=== PATIENT | female | born 1940 | race Two or more races ===

== ENCOUNTER 2018-04-16 11:27 | Inpatient (IN) | payer MEDICARE ==
[2018-04-16] VITALS (7 sets, daily range): BP systolic 99–164; BP diastolic 48–81
[~2018-04-16] VITALS: Ht 152.4 cm; Wt 86.2 kg
[~2018-04-16 11:27] MED LIST: ASPIR 8181 MG ORAL; ATORVASTATIN CA20 MG ORAL; HYZAAR 100-251 EACH ORAL; IBUPROFEN600 MG ORAL; JANUVIA100 MG ORAL; LEVAQUIN750 MG ORAL; PROMETHAZINE-C118 M1 ORAL; TRADJENTA5 MG PO; TRAVEL SICKNESS25 MG ORAL
[2018-04-16] MEDS ORDERED: Meclizine 25mg tab ORAL ONE (12:15)
--- NOTE | 2018-04-16 12:22 | Emergency Room Report ---
History of Present Illness General Chief Complaint: General Complaint Source: Patient Present Illness HPI Patient is a 77-year-old female who presented after increased dizziness. Patient gradual onset of symptoms. She reports having increased dizziness as well as chest discomfort. Patient not been having any fever. She was having multiple episodes of vomiting. She reports having some abdominal discomfort which began after multiple episodes of vomiting. She denies any hematemesis. Allergies: Coded Allergies: No Known Allergies (Unverified , 12/16/15) Patient History Past Medical History: see triage record Last Menstrual Period: na Reviewed Nursing Documentation: PMH: Agreed; PSxH: Agreed Nursing Documentation-PMH Past Medical History: No History, Except For Hx Hypertension: Yes Hx Diabetes: Yes Review of Systems All Other Systems: negative except mentioned in HPI Physical Exam Vital Signs Date Time Temp Pulse Resp B/P (MAP) Pulse Ox O2 Delivery O2 Flow Rate FiO2 04/16/18 11:28 97.9 81 18 164/48 98 Room Air 97.9 Sp02 EP Interpretation: reviewed, normal General Appearance: normal inspection, well appearing, no apparent distress, alert, GCS 15, non-toxic, obese Head: atraumatic ENT: normal ENT inspection, hearing grossly normal, normal voice Neck: normal inspection, full range of motion, supple, no bony tend Respiratory: normal inspection, lungs clear, normal breath sounds, no respiratory distress, no retraction, no wheezing Cardiovascular #1: regular rate, rhythm, no edema Gastrointestinal: normal inspection, normal bowel sounds, non tender, soft, no guarding, no hernia Genitourinary: no CVA tenderness Musculoskeletal: normal inspection, back normal, normal range of motion Neurologic: normal inspection, alert, oriented x3, responsive, cuff stitcher III-XII nml as tested, speech normal Psychiatric: normal inspection, judgement/insight normal, mood/affect normal Skin: normal inspection, normal color, no rash Medical Decision Making Diagnostic Impression: Primary Impression: Intractable vomiting Additional Impression: Diabetes ER Course patient presented for dizziness. Differential diagnosis included but not limited to urinary tract infection, anemia, arrhythmia, abdominal aortic aneurysm, CVA, subarachnoid hemorrhage, benign positional vertigo. Because of complexity of patient's case laboratory testing and imaging studies were ordered.CT the head read by radiology showed nonspecific white matter changes without evident intracranial hemorrhage or CVA. There is noted be some calcification in the basal ganglia. The patient was given Zofran as well as meclizine as well as Compazine without any improvement or vomiting. The patient started on IV fluids.The CT of abdomen pelvis is ordered and is currently pending. Dr. Vignesh Mariee was contacted for inpatient management due to covering physician. Labs Test 04/16/18 12:20 04/16/18 14:26 04/17/18 06:28 White Blood Count 9.5 K/UL (4.8-10.8) Red Blood Count 5.22 M/UL (4.20-5.40) Hemoglobin 14.6 G/DL (12.0-16.0) Hematocrit 45.5 % (37.0-47.0) Mean Corpuscular Volume 87 FL (80-99) Mean Corpuscular Hemoglobin 28.0 PG (27.0-31.0) Mean Corpuscular Hemoglobin Concent 32.1 G/DL (32.0-36.0) Red Cell Distribution Width 11.9 % (11.6-14.8) Platelet Count 186 K/UL (150-450) Mean Platelet Volume 8.4 FL (6.5-10.1) Neutrophils (%) (Auto) 64.7 % (45.0-75.0) Lymphocytes (%) (Auto) 26.4 % (20.0-45.0) Monocytes (%) (Auto) 5.3 % (1.0-10.0) Eosinophils (%) (Auto) 2.3 % (0.0-3.0) Basophils (%) (Auto) 1.3 % (0.0-2.0) Sodium Level 137 MMOL/L (136-145) Potassium Level 3.8 MMOL/L (3.5-5.1) Chloride Level 101 MMOL/L (98-107) Carbon Dioxide Level 27 MMOL/L (21-32) Anion Gap 9 mmol/L (5-15) Blood Urea Nitrogen 16 mg/dL (7-18) Creatinine 1.0 MG/DL (0.55-1.30) Estimat Glomerular Filtration Rate mL/min (>60) Glucose Level 235 MG/DL (74-106) Calcium Level 9.4 MG/DL (8.5-10.1) Total Bilirubin 0.3 MG/DL (0.2-1.0) Aspartate Amino Transf (AST/SGOT) 35 U/L (15-37) Alanine Aminotransferase (ALT/SGPT) 43 U/L (12-78) Alkaline Phosphatase 102 U/L (46-116) Total Creatine Kinase 62 U/L (26-308) Creatine Kinase MB 0.6 NG/ML (0.0-3.6) Creatine Kinase MB Relative Index 0.9 Troponin I 0.000 ng/mL (0.000-0.056) Pro-B-Type Natriuretic Peptide 94 pg/mL (0-125) Total Protein 8.2 G/DL (6.4-8.2) Albumin 3.5 G/DL (3.4-5.0) Globulin 4.7 g/dL Albumin/Globulin Ratio 0.7 (1.0-2.7) Urine Color Yellow Urine Appearance Slightly cloudy Urine pH 7 (4.5-8.0) Urine Specific Dahlgren 1.005 (1.005-1.035) Urine Protein 2+ (NEGATIVE) Urine Glucose (UA) Negative (NEGATIVE) Urine Ketones Negative (NEGATIVE) Urine Occult Blood 3+ (NEGATIVE) Urine Nitrite Negative (NEGATIVE) Urine Bilirubin Negative (NEGATIVE) Urine Urobilinogen 1 MG/DL (0.0-1.0) Urine Leukocyte Esterase 3+ (NEGATIVE) Urine RBC 2-4 /HPF (0 - 2) Urine WBC 5-10 /HPF (0 - 2) Urine Squamous Epithelial Cells Few /LPF (NONE/OCC) Urine Amorphous Sediment Moderate /LPF (NONE) Urine Bacteria Few /HPF (NONE) Last Vital Signs Date Time Temp Pulse Resp B/P (MAP) Pulse Ox O2 Delivery O2 Flow Rate FiO2 04/16/18 11:41 97.9 81 18 164/48 98 Room Air 97.9 Status: unchanged Disposition: ADMITTED INPATIENT Condition: Serious Referrals: NOT CHOSEN IPA/,REFERRING (PCP) Reji Durbin MD Apr 16, 2018 12:22
[2018-04-16 12:35] LABS: BASOPHILS % (AUTO) 1.3 % (0.0-2.0); EOSINOPHILS % (AUTO) 2.3 % (0.0-3.0); HEMATOCRIT 45.5 % (37.0-47.0); HEMOGLOBIN 14.6 G/DL (12.0-16.0); LYMPHOCYTES % (AUTO) 26.4 % (20.0-45.0); MEAN CORPUSCULAR VOLUME 87 FL (80-99); MONOCYTES % (AUTO) 5.3 % (1.0-10.0); NEUTROPHILS % (AUTO) 64.7 % (45.0-75.0); PLATELET COUNT 186 K/UL (150-450); RED BLOOD COUNT 5.22 M/UL (4.20-5.40); RED CELL DISTRIBUTION WIDTH 11.9 % (11.6-14.8); WHITE BLOOD COUNT 9.5 K/UL (4.8-10.8)
[2018-04-16 12:46] LABS: ANION GAP 9 mmol/L (5-15); BLOOD UREA NITROGEN 16 mg/dL (7-18); CALCIUM 9.4 MG/DL (8.5-10.1); CARBON DIOXIDE 27 MMOL/L (21-32); CHLORIDE 101 MMOL/L (98-107); POTASSIUM 3.8 MMOL/L (3.5-5.1); SODIUM 137 MMOL/L (136-145)
[2018-04-16 13:00] LABS: ALANINE AMINOTRANSFERASE 43 U/L (12-78); ALBUMIN 3.5 G/DL (3.4-5.0); ALBUMIN/GLOBULIN RATIO 0.7 (1.0-2.7); ALKALINE PHOSPHATASE 102 U/L (46-116); ASPARTATE AMINO TRANSFERASE 35 U/L (15-37); BILIRUBIN,TOTAL 0.3 MG/DL (0.2-1.0); CKMB 0.6 NG/ML (0.0-3.6); CREATINE KINASE 62 U/L (26-308)
--- NOTE | 2018-04-16 13:04 | Diagnostic Imaging Report ---
Indications: 77-year-old female with altered mental status and increased dizziness Technique: Spiral acquisitions obtained through the brain. Angled axial and coronal 5 x 5 mm slices were reconstructed. Total dose length product 1432.22 mGycm. CTDI vol(s) 70.38 mGy. Dose reduction achieved using automated exposure control Comparison: None. Findings: No acute intracranial hemorrhage or edema. No mass effect nor midline shift. There is age-related enlargement of the ventricles and extra axial CSF spaces. There is periventricular deep white matter low-attenuation, consistent with chronic ischemic change. A small calcification is seen in the left caudate head. The calvarium is intact. The mastoids are clear. The sinuses are clear. The visualized orbits are unremarkable. Impression: Chronic and age-related changes Negative for acute intracranial bleed or mass effect The CT scanner at [facility] is accredited by the [employer] and the scans are performed using protocols designed to limit radiation exposure to as low as reasonably achievable to attain images of sufficient resolution adequate for diagnostic evaluation.
--- NOTE | 2018-04-16 13:05 | Diagnostic Imaging Report ---
Indication: Reason For Exam: SOB Technique: One view of the chest Comparison: 12/16/2015 Findings: Body habitus somewhat limits evaluation. There is atelectasis at the right lung base and elevation of the right hemidiaphragm. The lungs and pleural spaces are otherwise clear. The heart is borderline enlarged. No significant change Impression: No acute process
[2018-04-16] MEDS ORDERED: Isovue-300 100ml vial INJ PRN ×2 (13:15→13:30)
[2018-04-16] MEDS ORDERED: Sodium Chloride 500ML 500 ML IV ONE (13:45)
--- NOTE | 2018-04-16 14:56 | Diagnostic Imaging Report ---
Clinical Indication: Abdominal pain, nausea, vomiting Technique: No oral contrast utilized, per emergency room physician request IV administration nonionic contrast. Venous phase spiral acquisition obtained through the abdomen and pelvis. Multiplanar reconstructions were generated. Total dose length product 1061.13 mGycm. CTDIvol(s) 19.51 mGy. Dose reduction achieved using automated exposure control Comparison: none Findings: Lack of enteric contrast limits assessment of the GI tract. The appendix is normal. There is colonic diverticulosis. No evidence of diverticulitis. No small bowel distention. No free or likely related intraperitoneal gas or fluid. There is a small fat-containing umbilical hernia. The distal esophagus, stomach, duodenum are all unremarkable. The liver demonstrates a few scattered subcentimeter low-attenuation lesions which are too small to characterize. There is equivocally some surface micronodular nodularity in the anterior left lobe. The gallbladder is surgically absent. No biliary ductal dilatation is evident. The pancreas is unremarkable. The spleen demonstrates a few subcentimeter low-attenuation lesions. It is otherwise unremarkable. The adrenals and kidneys are unremarkable. No retroperitoneal or mesenteric mass or adenopathy. No pelvic mass or adenopathy. Uterus and adnexal structures are unremarkable. The included lung bases demonstrate some atelectatic changes, are otherwise unremarkable. The bones demonstrate mild degenerative changes of the lumbosacral junction. Impression: No acute abnormality Equivocal minimal atelectatic left lobe surface nodularity, if real could indicate early cirrhotic change Subcentimeter low-attenuation liver lesions, too small to characterize, most likely benign simple cysts or bile hamartomas. A few scattered subcentimeter low-attenuation lesions are seen within the spleen is well Prior cholecystectomy Colonic diverticulosis. No evidence of diverticulitis Incidental findings as noted, including minimal degenerative spondylosis, minimal basilar pulmonary atelectatic changes, small fat-containing umbilical hernia The CT scanner at [facility] is accredited by the [employer] and the scans are performed using protocols designed to limit radiation exposure to as low as reasonably achievable to attain images of sufficient resolution adequate for diagnostic evaluation.
[2018-04-16 14:58] LABS: APPEARANCE,URINE SLIGHTLY CLOUDY; BILIRUBIN, URINE NEGATIVE (NEGATIVE); GLUCOSE, URINE (UA) NEGATIVE (NEGATIVE); KETONES,URINE NEGATIVE (NEGATIVE); LEUKOCYTE ESTERASE ,URINE 3+ (NEGATIVE); NITRITE,URINE NEGATIVE (NEGATIVE); PH,URINE 7 (4.5-8.0); PROTEIN,URINE 2+ (NEGATIVE); UROBILINOGEN,URINE 1 MG/DL (0.0-1.0)
[2018-04-16 15:08] LABS: COLOR,URINE YELLOW
[2018-04-16] MEDS: NS w/KCl 20mEq 1,000 ML IV SCH (20:32)
[2018-04-16] MEDS: NovoLOG Insulin Flexpen SUBQ SCH (20:33)
--- NOTE | 2018-04-16 22:15 | History and Physical Report ---
DATE OF ADMISSION: 04/16/2018 NOTE: INCOMPLETE DICTATION REASON FOR ADMISSION: Dizziness with vomiting. HISTORY OF PRESENT ILLNESS: This is a 77-year-old female who lives at home with her family members. The patient notes several days of progression of these symptoms, now today with nausea and vomiting became more severe and she notes dizziness with turning her head or lying flat on a pill with her head back. She has not had any fevers or chills. She has not had any diarrhea and has not had any change in her diet. She noted some discomfort in her chest associated with multiple vomiting episodes. Vomitus is bilious without any signs of blood or dark material. There is no prior history of cerebrovascular disease. PAST MEDICAL HISTORY: Type 2 diabetes mellitus, hypertension, osteoarthritis, degenerative disk disease, diverticular disease and prior hysterectomy. MEDICATIONS: Prior to admission, reviewed and reconciled. ALLERGIES: None. FAMILY HISTORY: Noncontributory. SOCIAL HISTORY: Negative for smoking, alcohol, or substance abuse. Vignesh Mariee M.D. DR: KYLER JOB#: [id number] CC:
--- NOTE | 2018-04-16 22:30 | History and Physical Report ---
DATE OF ADMISSION: 04/16/2018 REASON FOR ADMISSION: Dizziness and vomiting. HISTORY OF PRESENT ILLNESS: This is a 77-year-old female. She presented to the emergency room because of dizziness and progressive vomiting. She notes a progression over the past several days, worsening today. She notes dizziness when turning her head or lying flat or having her head on a pillow. She notes the vomiting and nausea started several days ago and progressed today to be unremitting and associated with chest discomfort due to this frequency and severity of these episodes. The emesis is described as bilious with no signs of blood or dark material. The patient does not have any known history of prior strokes or hepatobiliary disease. She has had a prior cholecystectomy. PAST MEDICAL HISTORY: Type 2 diabetes mellitus, hypertension, osteoarthritis, degenerative disk disease, status post cholecystectomy, and diverticular disease. MEDICATIONS: Prior to admission, reviewed and reconciled. ALLERGIES: None. SOCIAL HISTORY: Negative for smoking, alcohol, or substance abuse. REVIEW OF SYSTEMS: No fevers. No chills. No cough or sputum production. No diarrhea. No history of thyroid disorder. Recent cholesterol parameters not known. No history of prior seizures or strokes. No history of heart attack or exertion of chest pain. PHYSICAL EXAMINATION: VITAL SIGNS: Afebrile. Blood pressure 164/48, pulse 81, and respirations 18. HEENT: Normocephalic and atraumatic. Conjunctivae pink. Sclerae are anicteric. Oropharynx clear. Mucous membranes moist. NECK: Supple. No bruits. Jugular venous pressure normal. LUNGS: Clear. CARDIAC: Regular rhythm and rate. Normal S1, S2 with a fourth heart sound. ABDOMEN: Soft. No focal guarding, tenderness, or rebound. EXTREMITIES: Good pulses. No clubbing, cyanosis, or edema. NEUROLOGIC: Strength is symmetric. Gait is somewhat wide-based . There is no asterixis. There is no nystagmus. Pupils are equal, round, reactive to light and accommodation. Extraocular movements intact. The patient does have difficulty turning her head or bending forward due to symptoms described above. DIAGNOSTIC DATA: Chest x-ray, no acute process. CAT scan of the brain with diffuse white matter disease. No acute process. Abdominal CT scan notable for cholecystectomy, diverticular disease, some liver and splenic lesions, which appear benign and a low attenuation, atelectasis, umbilical hernia, and spondylosis. LABORATORY DATA: Chemistry within normal limits other than glucose level elevated at 235. White count 9.5 and hemoglobin 14.6. EKG, sinus rhythm with nonspecific ST-T wave changes. IMPRESSION: This is a 77-year-old female, who presents with dizziness and vomiting with findings suggestive of benign positional vertigo. Other concerns include her mildly elevated blood pressure and elevated glucose level. RECOMMENDATIONS: 1. Recommend admit to the hospital. 2. Cardiac monitoring. 3. Orthostatics. 4. Hydration. 5. Neurologic consultation. 6. Antiemetics. 7. Consider Valium for further nausea, vomiting, and vertiginous symptoms. 8. DVT prophylaxis should there be prolonged immobilization. 9. Further recommendations will follow based on clinical course. Vignesh Mariee M.D. DR: MARIA ELENA JOB#: [id number] CC:
[2018-04-17 04:00] VITALS: BP 91/52
[2018-04-17] MEDS: NovoLOG Insulin Flexpen SUBQ SCH ×4 (06:11→21:14)
[2018-04-17 08:00] VITALS: BP 145/59
[2018-04-17] MEDS: NS w/KCl 20mEq 1,000 ML IV SCH ×2 (09:20→11:37)
[2018-04-17 12:00] VITALS: BP 156/76
--- NOTE | 2018-04-17 14:03 | Cardiology Report ---
APPROVED REPORT EKG Measurement Heart [id number] AR [id number] Normal sinus rhythm Left axis deviation Abnormal ECG
[2018-04-17 16:00] VITALS: BP 142/85
--- NOTE | 2018-04-17 18:23 | Consultation ---
Consult Note Consult Note NEUROLOGY CONSULTATION: Full note dictated #[id number] 77 y/o, RH, HF with PH of HTN, DM, OA, DJD, diverticular disease, and hysterectomy. About 6 months ago she had a brief episode of vertigo. Then ~ 1 week ago she noted brief episodes of positional vertigo. Then on the day of admission she got severely vertiginous and had N/V with the vertigo and thus [place] [facility] [place] was [place]. ON EXAM: Cognitive dysfunction. Globally diminished DTRs. Vertigo and nystagmus lasting 15 seconds when she was made to sit up which fatigued. IMPRESSION: Labyrinthine vertigo most probably BPV. REC: Valium 2 mg q HS for a few nights. When more comfortable teach her to do Aden-Daroff exercises. Observe. Lanie Larios M.D., M.S.P.LANIE RANDALL Apr 17, 2018 18:23
[2018-04-17 20:00] VITALS: BP 142/61
--- NOTE | 2018-04-17 23:45 | Consultation ---
DATE OF CONSULTATION: 04/17/2018 NEUROLOGY CONSULTATION CONSULTING PHYSICIAN: Gagandeep Larios M.D. REQUESTING PHYSICIAN: Vignesh Mariee M.D. HISTORY: Ms. Dayna Trevizo is a 77-year-old, right-handed, lady, who does have a past history of hypertension, diabetes mellitus, osteoarthritis, degenerative joint disease, diverticular disease, and a hysterectomy. She was functioning relatively well until approximately six months ago when she had a brief episode of positional vertigo. She would get brief episodes of a vertiginous feeling when she would change her position usually from lying down to sitting up. This then spontaneously resolved. Then approximately one week ago, she again started to have brief episodes of positional vertigo. On the day of admission, this got significantly worse. She was severely vertiginous and had nausea and vomiting with the vertigo. As a result of that, she was brought into the [facility] emergency room and was admitted. Today, she feels much better. She still gets a vertiginous feeling when she sits or stands from a lying down position, however, when she came turns her head from side to side, she is not vertiginous. She denies any weakness on one side or the other, numbness on one side or the other, problems with speech, problems with language, problems with vision, or other neurological symptoms. PAST MEDICAL HISTORY: Significant for hypertension, diabetes mellitus, osteoarthritis, degenerative joint disease, diverticular disease, and hysterectomy. FAMILY HISTORY: Significant for high blood pressure and diabetes mellitus in other family members. PERSONAL HISTORY: Home: She lives with a nephew. 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 Habits: She denies the use of alcohol, tobacco, or illicit drugs. MEDICATIONS: Present medications include insulin and Zofran. PHYSICAL EXAMINATION: GENERAL: She is a well-developed, well-nourished, pleasant lady, lying in bed, in no acute distress. VITAL SIGNS: Pulse 90/minute, blood pressure 142/85 mmHg, respirations 19/minute, and temperature 97.4 degrees Fahrenheit. HEAD: Normocephalic and atraumatic. EENT: Examination benign. NECK: No neck rigidity was observed. NEUROLOGICAL EXAMINATION: MENTAL STATUS EXAMINATION: She was awake and alert. She was oriented to self, [facility] and March. She did not know the date or the year. She was able to recall 3/3 words immediately, and could remember them in 1 minute and 3 minutes. She was unable to remember any [place] Presidents. Her mathematical skills were minimally impaired. Her visuospatial function was also minimally impaired. SPEECH: She had no dysarthria. LANGUAGE: She had no aphasia. CRANIAL NERVE EXAMINATION: II: The visual lincoln were intact on confrontation testing. III, IV & : The external ocular movements were full and the pupils 3 mm in diameter, equal, round, regular, and reactive to light. She had normal facial sensations and the temporales, masseters, and pterygoids functioned normally. VII: She had normal facial expressions and no facial asymmetry. VIII: She was able to hear well bilaterally and had no nystagmus at rest. IX: The palate moved symmetrically on phonation. X: She had no hoarseness of voice. XI: The sternocleidomastoids and trapezii functioned normally. XII: The tongue was in the midline without any fasciculations or atrophy. MOTOR SYSTEM: The tone was normal in all four extremities. Examination of muscle mass revealed no focal wasting. Examination of power revealed G 5/5 power in all muscle groups tested. SENSORY EXAMINATION: She had intact sensations to pinprick, light touch, and graphesthesia. COORDINATION: She performed well on [id number] and [id number] testing. Romberg test could not be performed because even when her eyes were opened and she was made to stand with feet together, she was quite unsteady. REFLEXES: 0 at the biceps, triceps, brachioradialis, knees, and ankles. The plantar responses were flexor bilaterally. STANCE: She had a wide-based stance. GAIT: She had a wide-based, but stable gait. POSITIONAL CHANGES: When she was made to turn her head in bed the left and to the right, no nystagmus or vertigo was noted, however, as soon as she was made to sit up from a lying down position, she started to have nystagmus with brief latency associated with vertigo. The entire episode lasted approximately 15 seconds. When an attempt was made to reproduce the events, they could not be reproduced. DIAGNOSTIC IMPRESSION: 1. Ms. Dayna Trevizo is a 77-year-old, right-handed, lady, with a past history of hypertension, diabetes mellitus, osteoarthritis, degenerative joint disease, diverticular disease, and hysterectomy who approximately six months ago had a brief episode of vertigo and then 1 week ago started to have multiple brief episodes of positional vertigo. On the day of admission, she got severely vertiginous and had nausea and vomiting. Today, she feels better. 2. On neurological examination, at this time, she does have problems with orientation, memory, visuospatial function and high cognitive function. She also has vertigo associated with nystagmus lasting approximately 15 seconds when she was made to sit up from a lying down position. This however cannot be reproduced. 3. The CT scan of the brain without contrast reveals atrophy and some deep white matter changes, but no acute pathology. 4. Laboratory data revealed a relatively normal CBC. A chemistry panel with blood glucose elevated to 235, but otherwise normal panel. Normal vitamin B12, and folate. Elevated TSH at 7.24. An urinalysis that reveals 3+ leukocyte esterase, 2-4 RBCs and 5-10 WBCs per high-power field. 5. The patient's history, neurological examination, laboratory data, and imaging studies are most compatible with labyrinthine vertigo. There is a high probability that this is benign position vertigo, which may have been triggered by her urinary tract infection or other reasons. RECOMMENDATIONS: 1. The patient was given an explanation of the above-mentioned findings. 2. She will be started on Valium 2 mg at bedtime for the next few nights to help her with vertiginous symptoms. 3. When she is more comfortable, she should be taught how to perform Aden-Daroff exercises, which will help her with her vertigo in the long run. 4. If appropriate, her urinary tract infection should be treated. Thank you for entrusting me with the care of Ms. Trevizo. I shall follow her with you. Gagandeep Larios M.D., M.S.P.H. DR: HANSA JOB#: [id number] [facility]
[2018-04-18] VITALS: BP 125/50
--- NOTE | 2018-04-18 02:30 | Progress Note ---
DATE: 04/17/2018 INTERNAL MEDICINE PROGRESS NOTE SUBJECTIVE: The patient notes no nausea or vomiting today. She is tolerating diet. She still has dizziness especially with turning of her head. OBJECTIVE: VITAL SIGNS: Afebrile. Blood pressure 142/85, pulse 98, respiratory rate 19. LUNGS: Clear. CARDIAC: Regular. Normal S1, S2. ABDOMEN: Soft, nontender. No guarding or rebound. EXTREMITIES: No edema. NEUROLOGIC: Vertigo and nystagmus were noted today. IMPRESSION: 1. BPPV. 2. Cerebrovascular disease. 3. Vomiting, resolved. PLAN: 1. 2. Physical and occupational therapy. 3. Fall precautions. 4. Cautious hydration. Vignesh Mariee M.D. DR: Leonardo JOB#: [id number] CC:
[2018-04-18 04:00] VITALS: BP 139/51
[2018-04-18] MEDS: NovoLOG Insulin Flexpen SUBQ SCH ×4 (06:26→20:58)
[2018-04-18 08:00] VITALS: BP 158/65
[2018-04-18] MEDS: NS w/KCl 20mEq 1,000 ML IV SCH (11:30)
[2018-04-18 12:00] VITALS: BP 143/58
[2018-04-18 16:00] VITALS: BP 129/53
--- NOTE | 2018-04-18 19:56 | Neurology Progress Note ---
Interim History Interim History Interim History Ms. Trevizo feels better today. She has been less vertiginous. She was able to sit up in a chair and have her meals. She was also able to walk well. She denies any new neurologic symptoms. Review of Systems Neuro Review of Systems Benign. Objective Physical Exam Last Vital Signs Date Time Temp Pulse Resp B/P (MAP) Pulse Ox O2 Delivery O2 Flow Rate FiO2 04/18/18 16:00 66 04/18/18 16:00 98.5 18 129/53 (78) 96 98.5 04/18/18 09:00 Room Air Neurologic Exam Objective PHYSICAL EXAMINATION: GENERAL: She is a well-developed, well-nourished, pleasant lady, lying in bed, in no acute distress. HEAD: Normocephalic and atraumatic. EENT: Examination benign. NECK: No neck rigidity was observed. NEUROLOGICAL EXAMINATION: MENTAL STATUS EXAMINATION: She was awake and alert. She was oriented to [facility], [facility], April 18, 2018. She was able to recall 3/3 words immediately, and could remember them in 1 minute and 3 minutes. She was unable to remember any [place] Presidents. Her mathematical skills were minimally impaired. Her visuospatial function was also minimally impaired. SPEECH: She had no dysarthria. LANGUAGE: She had no aphasia. CRANIAL NERVE EXAMINATION: II: The visual licnoln were intact on confrontation testing. III, IV & : The external ocular movements were full and the pupils 3 mm in diameter, equal, round, regular, and reactive to light. V: She had normal facial sensations and the temporales, masseters, and pterygoids functioned normally. VII: She had normal facial expressions and no facial asymmetry. VIII: She was able to hear well bilaterally and had no nystagmus at rest. IX: The palate moved symmetrically on phonation. X: She had no hoarseness of voice. XI: The sternocleidomastoids and trapezii functioned normally. XII: The tongue was in the midline without any fasciculations or atrophy. MOTOR SYSTEM: The tone was normal in all four extremities. Examination of muscle mass revealed no focal wasting. Examination of power revealed G 5/5 power in all muscle groups tested. SENSORY EXAMINATION: She had intact sensations to pinprick, light touch, and graphesthesia. COORDINATION: She performed well on [id number] and [id number] testing. Romberg test could not be performed because even when her eyes were opened and she was made to stand with feet together, she was quite unsteady. REFLEXES: 0 at the biceps, triceps, brachioradialis, knees, and ankles. The plantar responses were flexor bilaterally. STANCE: She had a wide-based stance. GAIT: She had a wide-based, but stable gait. POSITIONAL CHANGES: When she was made to turn her head in bed the left and to the right, and even when she was made to sit up at the edge of her bed no nystagmus or vertigo was noted. Impression/Recommendations Diagnostic Impression 1. Ms. Dayna Trevizo is a 77-year-old, right-handed, lady, with a past history of hypertension, diabetes mellitus, osteoarthritis, degenerative joint disease, diverticular disease, and hysterectomy who approximately six months ago had a brief episode of vertigo and then 1 week ago started to have multiple brief episodes of positional vertigo. On the day of admission, she got severely vertiginous and had nausea and vomiting. 2. She feels better today. She has been less vertiginous. She was able to sit up in a chair and have her meals. She was also able to walk well. She denies any new neurologic symptoms. 3. On neurological examination, at this time, she does have problems with orientation, memory, visuospatial function and high cognitive function. She also did not demonstrate vertigo or nystagmus today. 4. The CT scan of the brain without contrast reveals atrophy and some deep white matter changes, but no acute pathology. 5. Laboratory data revealed a relatively normal CBC. A chemistry panel with blood glucose elevated to 235, but otherwise normal panel. Normal vitamin B12, and folate. Elevated TSH at 7.24. An urinalysis that reveals 3+ leukocyte esterase, 2-4 RBCs and 5-10 WBCs per high-power field. 6. The patient's history, neurological examination, laboratory data, and imaging studies are most compatible with labyrinthine vertigo. There is a high probability that this is benign position vertigo, which may have been triggered by her urinary tract infection or other reasons. Recommendations 1. Continue Valium 2 mg at bedtime for the next few nights to help her with vertiginous symptoms. 2. When she is more comfortable, she should be taught how to perform Aden- Daroff exercises, which will help her with her vertigo in the long run. 3. If appropriate, her urinary tract infection should be treated. 4. Increase activity as tolerated. Lanie Talbert M.D., M.S.P.Rafy. LANIE TALBERT Apr 18, 2018 19:55
[2018-04-18 20:00] VITALS: BP 144/76
[2018-04-19] VITALS: BP 114/53
--- NOTE | 2018-04-19 00:15 | Progress Note ---
DATE: 04/18/2018 INTERNAL MEDICINE PROGRESS NOTE SUBJECTIVE: The patient is able to ambulate, feels better. Appetite still poor. She still has some nausea after meals as well as dyspepsia. No new neurologic complaints. OBJECTIVE: VITAL SIGNS: Blood pressure 129/53, pulse 66, respirations 18, and afebrile. NECK: Supple. Jugular venous pressure normal. LUNGS: Clear. CARDIAC: Regular rhythm and rate. Normal S1 and S2 with a fourth heart sound. ABDOMEN: Soft and nontender. EXTREMITIES: No edema. No nystagmus noted. Strength is symmetric. Gait is still slightly wide base. IMPRESSION: Overall improved. PLAN: 1. Continue symptomatic management of BPPV. 2. Discontinue IV fluids. 3. Continue p.r.n. antiemetics and antacids. 4. Physical and occupational therapy. 5. Fall precautions. 6. Discharge planning. Vignesh Mariee M.D. DR: KYLER JOB#: [id number] CC:
[2018-04-19 04:00] VITALS: BP 150/64
[2018-04-19 05:31] LABS: BASOPHILS % (AUTO) 0.9 % (0.0-2.0); EOSINOPHILS % (AUTO) 2.4 % (0.0-3.0); HEMATOCRIT 42.5 % (37.0-47.0); HEMOGLOBIN 13.8 G/DL (12.0-16.0); LYMPHOCYTES % (AUTO) 26.9 % (20.0-45.0); MEAN CORPUSCULAR VOLUME 87 FL (80-99); MONOCYTES % (AUTO) 4.8 % (1.0-10.0); NEUTROPHILS % (AUTO) 64.9 % (45.0-75.0); PLATELET COUNT 177 K/UL (150-450); RED BLOOD COUNT 4.89 M/UL (4.20-5.40); RED CELL DISTRIBUTION WIDTH 11.8 % (11.6-14.8); WHITE BLOOD COUNT 8.4 K/UL (4.8-10.8)
[2018-04-19] MEDS: NovoLOG Insulin Flexpen SUBQ SCH ×2 (05:53→11:25)
[2018-04-19 06:05] LABS: ALANINE AMINOTRANSFERASE 34 U/L (12-78); ALBUMIN 3.2 G/DL (3.4-5.0); ALBUMIN/GLOBULIN RATIO 0.8 (1.0-2.7); ALKALINE PHOSPHATASE 82 U/L (46-116); ANION GAP 8 mmol/L (5-15); ASPARTATE AMINO TRANSFERASE 27 U/L (15-37); BILIRUBIN,TOTAL 0.6 MG/DL (0.2-1.0); BLOOD UREA NITROGEN 14 mg/dL (7-18); CALCIUM 9.1 MG/DL (8.5-10.1); CARBON DIOXIDE 28 MMOL/L (21-32); CHLORIDE 104 MMOL/L (98-107); CREATININE 0.8 MG/DL (0.55-1.30); POTASSIUM 4.2 MMOL/L (3.5-5.1); SODIUM 140 MMOL/L (136-145)
[2018-04-19 08:00] VITALS: BP 145/65
--- NOTE | 2018-04-19 11:20 | Neurology Progress Note ---
Interim History Interim History Interim History Ms. Trevizo feels better today. She has been less vertiginous. She has been able to sit up comfortably. She was also able to walk well. She denies any new neurologic symptoms. She is eager to go home. Review of Systems Neuro Review of Systems Benign. Objective Physical Exam Last Vital Signs Date Time Temp Pulse Resp B/P (MAP) Pulse Ox O2 Delivery O2 Flow Rate FiO2 04/19/18 09:00 Room Air 04/19/18 08:00 62 04/19/18 08:00 98.2 19 145/65 (91) 95 98.2 Laboratory Tests Test 04/19/18 05:10 White Blood Count 8.4 K/UL (4.8-10.8) Red Blood Count 4.89 M/UL (4.20-5.40) Hemoglobin 13.8 G/DL (12.0-16.0) Hematocrit 42.5 % (37.0-47.0) Mean Corpuscular Volume 87 FL (80-99) Mean Corpuscular Hemoglobin 28.2 PG (27.0-31.0) Mean Corpuscular Hemoglobin Concent 32.4 G/DL (32.0-36.0) Red Cell Distribution Width 11.8 % (11.6-14.8) Platelet Count 177 K/UL (150-450) Mean Platelet Volume 7.8 FL (6.5-10.1) Neutrophils (%) (Auto) 64.9 % (45.0-75.0) Lymphocytes (%) (Auto) 26.9 % (20.0-45.0) Monocytes (%) (Auto) 4.8 % (1.0-10.0) Eosinophils (%) (Auto) 2.4 % (0.0-3.0) Basophils (%) (Auto) 0.9 % (0.0-2.0) Sodium Level 140 MMOL/L (136-145) Potassium Level 4.2 MMOL/L (3.5-5.1) Chloride Level 104 MMOL/L (98-107) Carbon Dioxide Level 28 MMOL/L (21-32) Anion Gap 8 mmol/L (5-15) Blood Urea Nitrogen 14 mg/dL (7-18) Creatinine 0.8 MG/DL (0.55-1.30) Estimat Glomerular Filtration Rate mL/min (>60) Glucose Level 191 MG/DL (74-106) H Calcium Level 9.1 MG/DL (8.5-10.1) Magnesium Level 1.7 MG/DL (1.8-2.4) L Total Bilirubin 0.6 MG/DL (0.2-1.0) Aspartate Amino Transf (AST/SGOT) 27 U/L (15-37) Alanine Aminotransferase (ALT/SGPT) 34 U/L (12-78) Alkaline Phosphatase 82 U/L (46-116) Pro-B-Type Natriuretic Peptide 179 pg/mL (0-125) H Total Protein 7.4 G/DL (6.4-8.2) Albumin 3.2 G/DL (3.4-5.0) L Globulin 4.2 g/dL Albumin/Globulin Ratio 0.8 (1.0-2.7) L Neurologic Exam Objective PHYSICAL EXAMINATION: GENERAL: She is a well-developed, well-nourished, pleasant lady, lying in bed, in no acute distress. HEAD: Normocephalic and atraumatic. EENT: Examination benign. NECK: No neck rigidity was observed. NEUROLOGICAL EXAMINATION: MENTAL STATUS EXAMINATION: She was awake and alert. She was oriented to [facility], [facility], and April 2018. She did not know the date. She was able to recall 3/3 words immediately, and could remember them in 1 minute and 3 minutes. She was unable to remember any [place] Presidents. Her mathematical skills were minimally impaired. Her visuospatial function was also minimally impaired. SPEECH: She had no dysarthria. LANGUAGE: She had no aphasia. CRANIAL NERVE EXAMINATION: II: The visual lincoln were intact on confrontation testing. III, IV & : The external ocular movements were full and the pupils 3 mm in diameter, equal, round, regular, and reactive to light. V: She had normal facial sensations and the temporales, masseters, and pterygoids functioned normally. VII: She had normal facial expressions and no facial asymmetry. VIII: She was able to hear well bilaterally and had no nystagmus at rest. IX: The palate moved symmetrically on phonation. X: She had no hoarseness of voice. XI: The sternocleidomastoids and trapezii functioned normally. XII: The tongue was in the midline without any fasciculations or atrophy. MOTOR SYSTEM: The tone was normal in all four extremities. Examination of muscle mass revealed no focal wasting. Examination of power revealed G 5/5 power in all muscle groups tested. SENSORY EXAMINATION: She had intact sensations to pinprick, light touch, and graphesthesia. COORDINATION: She performed well on [id number]-[id number] and gehx-gn-pofj testing. Romberg test could not be performed because even when her eyes were opened and she was made to stand with feet together, she was quite unsteady. REFLEXES: 0 at the biceps, triceps, brachioradialis, knees, and ankles. The plantar responses were flexor bilaterally. STANCE: She had a wide-based stance. GAIT: She had a wide-based, but stable gait. POSITIONAL CHANGES: When she was made to turn her head to the left and to the right, and even when she was made to sit up at the edge of her bed no nystagmus or vertigo was noted. Impression/Recommendations Diagnostic Impression 1. Ms. Dayna Trevizo is a 77-year-old, right-handed, lady, with a past history of hypertension, diabetes mellitus, osteoarthritis, degenerative joint disease, diverticular disease, and hysterectomy who approximately six months ago had a brief episode of vertigo and then 1 week ago started to have multiple brief episodes of positional vertigo. On the day of admission, she got severely vertiginous and had nausea and vomiting. 2. She feels better today. She has been less vertiginous. She has been able to sit up comfortably. She was also able to walk well. She denies any new neurologic symptoms. She is eager to go home. 3. On neurological examination, at this time, she does have problems with orientation, memory, visuospatial function and higher cognitive function. She however did not demonstrate vertigo or nystagmus today. 4. The CT scan of the brain without contrast reveals atrophy and some deep white matter changes, but no acute pathology. 5. Laboratory data revealed a relatively normal CBC. A chemistry panel with blood glucose elevated to 235, but otherwise normal panel. Normal vitamin B12, and folate. Elevated TSH at 7.24. An urinalysis that reveals 3+ leukocyte esterase, 2-4 RBCs and 5-10 WBCs per high-power field. 6. The patient's history, neurological examination, laboratory data, and imaging studies are most compatible with labyrinthine vertigo. There is a high probability that this is benign position vertigo, which may have been triggered by her urinary tract infection or other reasons. Recommendations 1. Continue Valium 2 mg at bedtime for the next few nights to help her with vertiginous symptoms. 2. When she is more comfortable, she should be taught how to perform Aden- Daroff exercises, which will help her with her vertigo in the long run. 3. If appropriate, her urinary tract infection should be treated. 4. Increase activity as tolerated. Lanie Talbert M.D., M.S.P.H. LANIE TALBERT Apr 19, 2018 11:20
[2018-04-19 12:00] VITALS: BP 145/70
[2018-04-19] MEDS ORDERED: PROTONIX40 MG ORAL (13:56)
[2018-04-19 15:50] VITALS: BP 153/72
--- NOTE | 2018-04-19 23:15 | Progress Note ---
DATE: 04/19/2018 INTERNAL MEDICINE PROGRESS NOTE SUBJECTIVE: The patient's dizziness has improved. She is ambulatory without assist. She is tolerating a diet with no nausea or vomiting. The patient is also complaining of persistent dyspepsia. OBJECTIVE: VITAL SIGNS: Blood pressure 145/ , pulse 65, respirations 21, and afebrile. LUNGS: Clear. CARDIAC: Regular. ABDOMEN: Soft. EXTREMITIES: No edema. NEUROLOGIC: Nonfocal. Gait is slightly wide based. IMPRESSION: 1. Benign paroxysmal positional vertigo with vertigo, now improved. 2. Cerebrovascular disease with no acute insult. 3. Type 2 diabetes mellitus. 4. Hypertensive heart disease. 5. Osteoarthritis. 6. Degenerative disk disease. 7. Esophageal reflux. PLAN: 1. Resume prior antihypertensives and glycemics. 2. Aspirin prophylaxis. 3. Empiric proton pump inhibitor. 4. Discharge with outpatient followup. 5. P.r.n. meclizine discussed. Vignesh Mariee M.D. DR: KYELR JOB#: [id number] CC:
--- NOTE | 2018-04-20 12:00 | Discharge Summary ---
Discharge Summary Discharge Summary _ DATE OF ADMISSION: 04/16/2018 DATE OF DISCHARGE: 04/19/2018 CONSULTANTS: Dr. Gagandeep Larios BRIEF HOSPITAL COURSE: Patient is a 77-year-old female, who presented to emergency room because of dizziness and progressive vomiting. Symptoms had been ongoing for the past several days and had worsened. She had dizziness when turning her head or when laying flat or with a pillow. Vomiting and nausea started several days but progressed and was unremitting and was associated with chest discomfort. Emesis was described to be billous with no signs of blood or dark material. Due to the frequency and severity of these episodes, patient presented to ED. She has medical history significant for type 2 diabetes mellitus, hypertension, osteoarthritis, degenerative disc disease, status post cholecystectomy and diverticular disease. On evaluation at ED, blood pressure was elevated. Blood work was without leukocytosis, hemoglobin and hematocrit was stable. Blood work was essentially unremarkable. Chest x-ray was without acute process. CT of the head showed chronic age-related changes, negative for acute intracranial bleed or mass effect. EKG was in normal sinus rhythm with nonspecific ST to T wave changes. She was then admitted for further workup. She was admitted to telemetry. She was given IV hydration and anti-emetics. She underwent neuro evaluation. On neurological examination, she had vertigo associated with nystagmus lasting 50 seconds when she was made to sit from a lying down position. Patient was assessed to have labyrinthine vertigo. High probability benign positional vertigo. She was started on Valium 2 mg daily at bedtime. Abdominal CT was negative for acute abnormality. She was given physical and occupational therapy. She was placed on fall precautions. Antihypertensives and oral glycemic were resumed. Symptoms improved and patient was eventually discharged home. FINAL DIAGNOSES: Benign paroxysmal positional vertigo with vomiting, improved Cerebrovascular disease with no acute insult Type 2 diabetes mellitus Hypertensive heart disease Osteoarthritis Degenerative disc disease Esophageal reflux DISPOSITION: Patient was discharged home with home health. DISCHARGE MEDICATIONS: Refer to Discharge Medication List. DISCHARGE INSTRUCTIONS: Follow up within a week. I have been assigned to dictate discharge summary on this account, and I was not involved in the patient's management. Keeley Santiago NP Apr 20, 2018 12:00
--- NOTE | 2018-04-27 15:19 | Cardiology Report ---
APPROVED REPORT EXAM: Two-dimensional and M-mode echocardiogram with Doppler and color Doppler. INDICATION Dizziness and Vertigo M-Mode DIMENSIONS IVSd2.1 (0.7-1.1cm)Left Atrium (MM)4.8 (1.6-4.0cm) LVDd4.0 (3.5-5.6cm)Aortic Root3.4 (2.0-3.7cm) PWd1.2 (0.7-1.1cm)Aortic Cusp Exc.1.6 (1.5-2.0cm) LVDs3.2 (2.5-4.0cm) PWs1.2 cm Normal left ventricular chamber size, systolic function and wall motion. Left ventricular ejection fraction estimated to be 60-65%. Mild left ventricular hypertrophy. No evidence of pericardial effusion. All other cardiac chamber sizes are within normal limits. Focal aortic valve sclerosis with adequate cusp excursion. Thickened mitral valve leaflets with normal excursion. Mitral annulus and aortic root calcification. Normal pulmonic valve structure. Normal tricuspid valve structure. IVC at normal size with physiologic collapse. A color flow and spectral Doppler study was performed and revealed: Trace aortic regurgitation. Trace mitral regurgitation. Mitral diastolic velocities suggest reduced left ventricular relaxation c/w mild LV diastolic dysfunction (Grade I). Mild tricuspid regurgitation. Tricuspid systolic velocities suggests peak right ventricular systolic pressure of 40 mmHg, consistent with mild pulmonary hypertension.
== END 2018-04-19 15:32 | disposition home health service (06) | DRG 149 ==
LOC: EMR 11:40 → 2E 13:46 → EDBEDREQ 15:01
DX: H81.10 Benign paroxysmal vertigo, unspecified ear (principal); E11.9 Type 2 diabetes mellitus without complications; M19.90 Unspecified osteoarthritis, unspecified site; K21.9 Gastro-esophageal reflux disease without esophagitis; I11.9 Hypertensive heart disease without heart failure; I67.9 Cerebrovascular disease, unspecified
CPT/HCPCS: 36415; 70450; 71045; 74177; 80053; 81003; 82550; 82553; 82607; 82746; 82962; 83735; 83880; 84443; 84484; 85025; 93005; 93306; J1815; J2405